=== PATIENT | female | born 1955 | race Two or more races ===

== ENCOUNTER 2021-08-02 09:15 | Inpatient (IN) | payer OTHER ==
[~2021-08-02] VITALS: Ht 167.6 cm; Wt 90.7 kg
[2021-08-02] MEDS ORDERED: ENALAPRIL MALEA10 MG PO (12:21)
[2021-08-02] MEDS ORDERED: GLUMETZA500 MG PO (12:22)
[2021-08-07] MEDS ORDERED: ESCITALOPRAM OX20 MG (08:36)
[2021-08-07] MEDS ORDERED: FAMOTIDINE20 MG (08:36)
[2021-08-07] MEDS ORDERED: CLONAZEPAM0.5 MG (08:36)
[2021-08-07] MEDS ORDERED: RESTORIL30 MG (08:36)
[2021-08-07] MEDS ORDERED: SONATA10 MG (08:36)
[2021-08-07] MEDS ORDERED: ROSUVASTATIN CA20 MG (08:36)
[2021-08-07] MEDS ORDERED: CLOTRIMAZOLE-BE15 G1 (08:37)
[2021-08-07] MEDS ORDERED: ZOVIRAX400 MG (08:37)
== END 2021-08-09 16:18 | DRG 470 ==
LOC: O/R 08-07 06:00 → SURH 08-07 06:00 → O/R 08-09 15:50 → SURH 08-09 15:58
PROVIDERS: ADMIT Orthopaedic Surgery; ATTEND Orthopaedic Surgery
PROC: 0SRD0J9 Replacement of Left Knee Joint with Synthetic Substitute, Cemented, Open Approach (ICD-10-PCS; principal; 2021-08-07 11:45)
DX: M17.12 Unilateral primary osteoarthritis, left knee (principal); D62 Acute posthemorrhagic anemia

== ENCOUNTER 2023-01-07 12:00 | Inpatient (IN) | payer OTHER ==
[~2023-01-07] VITALS: Ht 167.6 cm; Wt 90.7 kg
[~2023-01-07 12:00] MED LIST: CLONAZEPAM0.5 MG; CLOTRIMAZOLE-BE15 G1; ENALAPRIL MALEA10 MG PO; ESCITALOPRAM OX20 MG; FAMOTIDINE20 MG; GLUMETZA500 MG PO; RESTORIL30 MG; ROSUVASTATIN CA20 MG; SONATA10 MG; ZOVIRAX400 MG
[2023-01-07] MEDS ORDERED: COZAAR100 MG PO (14:39)
[2023-01-07] MEDS ORDERED: ADULT LOW DOSE81 M1 PO (14:40)
[2023-01-07] MEDS ORDERED: NORVASC5 MG PO (14:40)
[2023-01-07] MEDS ORDERED: GABAPENT PO (14:41)
[2023-01-07] MEDS ORDERED: ATORVASTATIN CA40 MG PO (14:41)
[2023-01-07] MEDS ORDERED: HORIZANT300 MG PO (14:41)
[2023-01-07] MEDS ORDERED: TOPROL XL50 M1 PO (14:42)
[2023-01-07] MEDS ORDERED: [UNRECOGNIZED DRUG - OTHER] PO (14:43)
[2023-01-16] MEDS ORDERED: GABAPENTIN100 MG PO (12:14)
[2023-01-16] MEDS ORDERED: NORFLEX100MG PO (12:14)
[2023-01-16] MEDS ORDERED: XARELTO10 M1 PO (12:15)
[2023-01-16] MEDS ORDERED: TRAMADOL HCL50 MG PO (12:15)
== END 2023-01-16 20:25 | DRG 470 ==
LOC: SURH 01-14 06:00 → O/R 01-14 06:00 → SURG 01-14 07:00 → SURH 01-14 11:02 → SURG 01-14 12:30 → SURH 01-16 20:25
PROVIDERS: ADMIT Orthopaedic Surgery; ATTEND Orthopaedic Surgery
PROC: 0SRC0JZ Replacement of Right Knee Joint with Synthetic Substitute, Open Approach (ICD-10-PCS; principal; 2023-01-14 07:00)
DX: M17.11 Unilateral primary osteoarthritis, right knee (principal); M85.661 Other cyst of bone, right lower leg; I10 Essential (primary) hypertension; E11.9 Type 2 diabetes mellitus without complications; Z79.4 Long term (current) use of insulin